=== PATIENT | male | born 1985 | race Caucasian/White ===

== ENCOUNTER 2019-01-11 20:13 | Emergency (ER) | payer OTHER, SELFPAY ==
[2019-01-11 20:21] VITALS: BP 155/88; PULSE 135; RESP 19; TEMP 37.1; O2SAT 96; BMI 48.1
--- NOTE | 2019-01-11 20:27 | DI.RAD.S_ITS ---
PROCEDURE: XR ANKLE LT MIN 3V INDICATIONS: twisted ankle TECHNIQUE: The views of the ankle were acquired. COMPARISON: None. FINDINGS: Bones: No fractures or dislocations. Ankle mortise is normally aligned. No suspicious bony lesions. Soft tissues: No tibiotalar joint effusion. Achilles tendon appears normal. IMPRESSION: No fracture. No osseous lesion. If there are persistent symptoms or clinical suspicion for pathology, then repeat radiographs or advanced imaging (CT, MRI or bone scan) should be considered for further evaluation. Dictated by: Keya Carlisle MD, PhD on 01/11/2019 at 21:14 Approved by: Keya Carlisle MD, PhD on 01/11/2019 at 21:15
--- NOTE | 2019-01-11 20:33 | ED.LOWEXIN ---
HPI - Extremity Injury (Lower) General Chief Complaint: Extremity Injury, Lower Stated Complaint: Left foot injury Time Seen by Provider: 01/11/19 22:20 Source: patient Mode of arrival: ambulatory Limitations: no limitations History of Present Illness HPI Narrative: Patient is a 33-year-old male who presents with left ankle pain. He was playing football on turf. He was running when he felt his toe get caught. He is able walk on it afterwards but he still has some pain laterally. He is noted to be quite tachycardic on arrival, he states that he has a 3 came ritual taking multiple allergy shots. His heart rate now after being in the emergency department for some time has decreased significantly. Related Data Allergies Allergy/AdvReac Type Severity Reaction Status Date / Time No Known Drug Allergies Allergy Verified 11/24/18 14:25 Review of Systems Review of Systems GENERAL: Denies chills,fever HEENT: Denies throat pain RESPIRATORY: Denies dyspnea, cough, wheezing CARDIOVASCULAR: Denies chest pain, palpitations GASTROINTESTINAL: Denies nausea, vomiting MUSCULOSKELETAL: See HPI SKIN: No rash, no laceration, no pruritus NEUROLOGIC: Denies weakness, dizziness, headache, numbness 8 point review of systems is negative except for those stated above and HPI PFSH Social History Smoking Status: Former smoker Social History Smoking Status: Former smoker Exam Initial Vital Signs Initial Vital Signs: Vital Signs Temperature 98.7 F 01/11/19 20:21 Pulse Rate 135 H 01/11/19 20:21 Respiratory Rate 19 01/11/19 20:21 Blood Pressure 155/88 H 01/11/19 20:21 Pulse Oximetry 96 01/11/19 20:21 GENERAL: Well-appearing, well-nourished and in no acute distress. CARDIOVASCULAR: peripheral pulses in tact, cap refill <2 sec RESPIRATORY: No respiratory distress, speaks in full sentences without difficulty EXTREMITIES: Normal range of motion, no clubbing or edema. Neurovascularly intact. -left lower extremity no gross bony deformities and minimal swelling no erythema on her vascularly intact NEUROLOGICAL: Cranial nerves II through XII grossly intact. Normal gait and speech. SKIN: Warm, dry, no petechiae, no rashes or lesions. Course Orders Ordered: ED Orders 01/11/19 20:27 XR ankle LT min 3V Stat EKG-12 Lead Stat Vital Signs - 8 hr 01/11/19 20:21 01/11/19 21:40 01/11/19 22:00 Temperature 98.7 F Pulse Rate 135 H 89 80 Respiratory Rate 19 16 19 Blood Pressure 155/88 H Blood Pressure [Right Arm] 126/80 129/79 Pulse Oximetry 96 99 98 MDM - Extremity Injury (Lower) Imaging Data left ankle: Radiologist's impression: PROCEDURE: XR ANKLE LT MIN 3V INDICATIONS: twisted ankle TECHNIQUE: The views of the ankle were acquired. COMPARISON: None. FINDINGS: Bones: No fractures or dislocations. Ankle mortise is normally aligned. No suspicious bony lesions. Soft tissues: No tibiotalar joint effusion. Achilles tendon appears normal. IMPRESSION: No fracture. No osseous lesion. If there are persistent symptoms or clinical suspicion for pathology, then repeat radiographs or advanced imaging (CT, MRI or bone scan) should be considered for further evaluation. Dictated by: Keya Carlisle MD, PhD on 01/11/2019 at 21:14 Approved by: Keya Carlisle MD, PhD on 01/11/2019 at 21:15 Discharge Plan Departure Patient Disposition: Home Clinical Impression: Sprain of ankle, left Qualifiers: Encounter type: initial encounter Involved ligament of ankle: unspecified ligament Qualified Code(s): S93.402A - Sprain of unspecified ligament of left ankle, initial encounter Discharge Date/Time: 01/11/19 22:42 Interventions: ED Discharge Assessment Last Done: 01/11/19 22:41 Instructions: Ankle Sprain Activity Restrictions/Additional Instructions: *You have been diagnosed with left ankle sprain *What to do: Increase activity as tolerated, rest, ice, elevate compression *Continue to take medications as directed Motrin 800 mg every 8 hours only if needed pain for up to 1 week *Follow up with your primary care provider in 2-3 days *Return to ER if you should have pain, numbness tingling weakness or any new, worsening or concerning symptoms
[2019-01-11 21:40] VITALS: BP 126/80; PULSE 89; RESP 16; O2SAT 99
[2019-01-11 22:00] VITALS: BP 129/79; PULSE 80; RESP 19; O2SAT 98
== END 2019-01-11 22:42 | disposition home or self-care (01) ==
PROVIDERS: Emergency Provider Emergency Medicine
DX: S93.402A Sprain of unspecified ligament of left ankle, initial encounter (principal); R00.0 Tachycardia, unspecified; Y93.61 Activity, american tackle football
CPT/HCPCS: 73610; 93005; 99282; 99284

== ENCOUNTER → 2020-05-14 08:28 | Outpatient (CLI) | payer OTHER, SELFPAY ==
[2020-05-14 09:55] LABS: Hemoglobin A1C% w Est Avg Glu 5.4 % (4.0-6.0)
[2020-05-14 09:57] LABS: Add Manual Diff / Slide Review NO; Basophils Absolute Auto 0 /uL (0-100); Basophils Percent Auto 0.1 % (0-2); Eosinophils Absolute Auto 100 /uL (0-450); Eosinophils Percent Auto 0.8 % (2-4); Hematocrit 44.9 % (41-53); Hemoglobin 15.5 g/dL (13.5-17.5); Lymphocytes Absolute Auto 1300 /uL (1100-4500); Lymphocytes Percent Auto 18.7 % (25-40); Mean Corpuscular HGB Conc 34.5 % (30-36); Mean Corpuscular Hemoglobin 30.4 PG (26-34); Mean Corpuscular Volume 88.1 fL (80-100); Monocytes Absolute Auto 500 /uL (0-900); Neutrophils Absolute Auto 5200 /uL (1500-7000); Neutrophils Percent Auto 73.4 % (50-75); Platelet Count 217 X10^3/uL (150-400); Red Cell Distribution Width 13.5 % (11.6-14.8); White Blood Cell Count 7.1 X10^3/uL (4.5-11.0)
[2020-05-14 10:16] LABS: Alanine Aminotransferase 51 IU/L (<50); Albumin 4.5 g/dL (3.5-5.0); Albumin Globulin Ratio 1.5 (1.0-2.8); Alkaline Phosphatase 69 U/L (38-126); Aspartate Aminotransferase 32 IU/L (17-59); BUN Creatinine Ratio 14.1 (6-22); Bilirubin Total 0.7 mg/dL (0.2-1.3); Blood Urea Nitrogen 14 mg/dL (9-20); Calcium 9.6 mg/dL (8.4-10.2); Carbon Dioxide 29 mmol/L (22-32); Chloride 104 mmol/L (98-107); Cholesterol 222 mg/dL (140-199); Estimated Glomerular Filt Rate > 60.0 mL/min (>60); Globulin 3.1 g/dL (1.7-4.1); Glucose 95 mg/dL (70-100); HDL Cholesterol 36 mg/dL (40-60); HEMOLYSIS < 15 (0-50); LDL Cholesterol Calculated 144 mg/dL (<100); Potassium 4.3 mmol/L (3.4-5.1); Sodium 139 mmol/L (137-145); Total Protein 7.6 g/dL (6.3-8.2); Triglycerides 211 mg/dL (35-150)
[2020-05-24 14:24] LABS: Urea Breath Test >18YRS NEGATIVE
== END ==
PROVIDERS: Referring Provider Family Medicine; Visit Provider Family Medicine
DX: E66.9 Obesity, unspecified (principal); K21.9 Gastro-esophageal reflux disease without esophagitis
CPT/HCPCS: 36415; 80053; 80061; 83013; 83036; 85025

== ENCOUNTER → 2021-08-08 08:12 | Outpatient (CLI) | payer OTHER, SELFPAY ==
[2021-08-08 09:34] LABS: Add Manual Diff / Slide Review NO; Basophils Absolute Auto 0 /uL (0-100); Basophils Percent Auto 0.2 % (0-2); Eosinophils Absolute Auto 100 /uL (0-450); Eosinophils Percent Auto 1.4 % (2-4); Hematocrit 42.3 % (41-53); Hemoglobin 14.3 g/dL (13.5-17.5); Lymphocytes Absolute Auto 1700 /uL (1100-4500); Lymphocytes Percent Auto 23.8 % (25-40); Mean Corpuscular HGB Conc 33.7 % (30-36); Mean Corpuscular Hemoglobin 30.1 PG (26-34); Mean Corpuscular Volume 89.2 fL (80-100); Monocytes Absolute Auto 500 /uL (0-900); Monocytes Percent Auto 7.1 % (3-14); Neutrophils Absolute Auto 4900 /uL (1500-7000); Neutrophils Percent Auto 67.5 % (50-75); Platelet Count 222 X10^3/uL (150-400); Red Blood Cell Count 4.75 X10^6/uL (4.5-5.9); Red Cell Distribution Width 13.5 % (11.6-14.8); White Blood Cell Count 7.3 X10^3/uL (4.5-11.0)
[2021-08-08 09:50] LABS: Alanine Aminotransferase 34 IU/L (<50); Albumin 4.2 g/dL (3.5-5.0); Albumin Globulin Ratio 1.3 (1.0-2.8); Alkaline Phosphatase 66 U/L (38-126); Aspartate Aminotransferase 25 IU/L (17-59); BUN Creatinine Ratio 15.8 (6-22); Bilirubin Total 0.6 mg/dL (0.2-1.3); Blood Urea Nitrogen 15 mg/dL (9-20); Carbon Dioxide 28 mmol/L (22-32); Chloride 107 mmol/L (98-107); Cholesterol 209 mg/dL (140-199); Estimated Glomerular Filt Rate > 60.0 mL/min (>60); Globulin 3.2 g/dL (1.7-4.1); Glucose 100 mg/dL (70-100); HDL Cholesterol 34 mg/dL (40-60); HEMOLYSIS < 15 (0-50); LDL Cholesterol Calculated 145 mg/dL (<100); Sodium 138 mmol/L (137-145); Total Protein 7.4 g/dL (6.3-8.2); Triglycerides 148 mg/dL (35-150)
[2021-08-08 10:08] LABS: Hemoglobin A1C% w Est Avg Glu 5.4 % (4.0-6.0)
== END ==
PROVIDERS: PCP Family Medicine; Referring Provider Family Medicine; Visit Provider Family Medicine
DX: E78.2 Mixed hyperlipidemia (principal); R73.9 Hyperglycemia, unspecified
CPT/HCPCS: 36415; 80053; 80061; 83036; 85025

== ENCOUNTER → 2021-09-07 16:46 | Outpatient (CLI) | payer OTHER, SELFPAY ==
--- NOTE | 2021-09-08 17:41 | DIET.CONS ---
Dietary Consultation Note Assessment: 36y M attending [address] visit for help with weight loss and HLD on 09/07/2021. 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 Pt spent much of high school on liquid diet and overexercising to cut weight for wrestling. Pt wrestled at 280# in high school. Pt reports drinking a lot of beer during early covid. He has a and two kids (9 and 11yo) who also wrestle. Ht: 6'3 Wt: 390# (420# not too long ago) UBW: 270# Usual Day: wakes 6am no breakfast unless weekend lunch 11am: panda express (broccoli beef, kungpao chicken, half diana mein and half steamed veggies) and ed Bite Teriyaki (ed with lots of rodriguez sprouts) drinks two sparkling ice drinks daily or water off 430 practice starts at 6pm wrestling Has been doing Hello [employer] the last few months but not last few weeks (lost 30# when starting) tries not to snack does [employer] and take out, though last few weeks more than usual Pts picky eater, likes chicken tenders with ketchup and other ultraprocessed foods. One of pts son is the same. This frustrates pt because he loves vegetables and variety of foods. Weekend: travelling for [employer] or sleeps in until 830am 1030am breakfast- biscuits and gravy c scrambled eggs and hashbrowns or lan and egg scramble or [employer]- corn beef hash dinner 5-6pm no plan or goes out to eat sometimes shephards pie Sunday night goes to friends house- [employer] food, reid light Pt not currently exercising because has trouble wearing mask at gym and has knee problems when walking on concrete. RD Impression: Pt will always be obese according to the BMI scale. Pts goal is to get under 350# and be able to maintain his weight without large fluctuations. Pts areas of improvement are in exercise to support his lean body mass and having more of a cohesive food plan on the weekends to avoid eating out, and to ensure high dietary fiber components in his weekend meals. Nutrition Dx: morbid obesity r/t physical inactivity and undesirable food choices aeb pt 390#, pt not currently exercising due to covid restrictions, pt lacks weekend food plan leading to high intake kcals, saturated fat, and low intake dietary fiber. Interventions: 1. Encouraged pt to get creative with how to workout. He is very well versed in exercise and relays to RD he just needs a push to get back into it. 2. Educated pt on the benefit of meal planning to reduce chance of caving into eating out. Provided pt with many copies of meal plan template and for him to start by focusing on Sunday breakfast and Sunday dinner. Pt will get son to make a fruit plate every Sunday am and veggie tray every Sunday evening as the family prefers raw fruits and veggies. Introduced pt to Whole30 meals, not to follow as plan, but to get idea for family friendly healthy meals to prepare on weekends. 3. Reiterated good choice of Hello Fresh type meal delivery for portion control and fresh ingredients. Pt enjoys rodriguez recipes. Reiterated benefit of dietary fiber in beans for good lipid regulation as well as satiety for weight loss. f/u in 8w to assess progress and problem solve barriers. Electronically Signed by: Keely Vega 09/08/21 17:41 Clinical Dietitian [place] [address] [place] [address]
== END ==
PROVIDERS: PCP Family Medicine; Referring Provider Family Medicine; Visit Provider Family Medicine
DX: E66.9 Obesity, unspecified (principal); E78.5 Hyperlipidemia, unspecified; Z68.42 Body mass index [BMI] 45.0-49.9, adult; Z71.3 Dietary counseling and surveillance
CPT/HCPCS: 97802

== ENCOUNTER → 2021-10-05 17:01 | Outpatient (CLI) | payer OTHER, SELFPAY ==
--- NOTE | 2021-10-06 16:19 | DIET.PN1 ---
Dietary Progress Note Visit conducted on 10/05/2021 36y M attending 4w f/u for help getting back on track with healthy eating and exercise. 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 Pt back on Hello Fresh for weekday meals, enjoying them. Pt looking at fiber content of foods, surprised that there is so little fiber in most packaged foods. Discussed sources of fiber in diet, mostly whole, plant based food, pt loves beans, will consume more. Pt had hectic few weeks with weekend [employer] so has not had any weekend family dinners but still planning to get kids involved in kitchen to make F/V platters for family. Pt happy mask mandate in gyms is up this , re-establishing his membership sunday and will start working out again. Pt feels weigh fluctuations related to hx of cyclic dieting, more recently being strict about diet then having the diet be so unsustainable he binges on junk food for weeks to months at a time feeling apathetic. Pt has hx high level physical activity and strength training, pt easily gains weight when not supporting LBM. Interventions: 1. Pt will continue to work on increasing protein and fiber in diet. Problem solving meals on the road, at [employer], and weekend eating. 2. Pt will start going to gym again Sunday to support LBM. 3. Pt will avoid strict dieting plans and instead focus on 80/20 rule, always looking for fiber and protein options. This will hopefully be protective factor for limiting cyclic dieting in favor of general healthy eating plan. F/u in 8w to support progress Electronically Signed by: Keely Vega 10/06/21 16:19 Clinical Dietitian [place] [address] [place] [address]
== END ==
PROVIDERS: PCP Family Medicine; Referring Provider Family Medicine; Visit Provider Family Medicine
DX: Z71.3 Dietary counseling and surveillance (principal)
CPT/HCPCS: 97803

== ENCOUNTER → 2021-12-07 16:58 | Outpatient (CLI) | payer OTHER, SELFPAY ==
--- NOTE | 2021-12-07 17:19 | DIET.CONS ---
Dietary Consultation Note 36y M attending RD f/u for healthy eating and weight loss. Pt starting at gym Sunday now that wrling season is over. 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 Pt knows when he starts to exercise he will feel better and be in better shape. Pt gained a few pounds last month but has since lost them. He attributes this to drinking too many beers. Pt expresses fact he is learning about himself is that he overcommits himself to others. Discussed how this can take away opportunities for self-care, healthy eating, sleep and exercise. Pt endorses 5-7h most night of sleep, discussed him trying to aim for 7h. Pt states he is having trouble hitting his fiber goal for the day, is eating blueberries, making black rodriguez soup, and eating lupini beans. Discussed supplemental fiber as needed whether pill, powder, or in fortified foods. Also to keep playing around with meal and snack options to find good fiber options. Provided link to [facility] with high fiber diet center. Ht: 6'3 Wt: 390# Monitoring/Evaluations: f/u in 3mo to discuss eating habits around back to school schedules Electronically Signed by: Keely Vega 12/07/21 17:19 Clinical Diet[address] [address]
== END ==
PROVIDERS: PCP Family Medicine; Referring Provider Family Medicine; Visit Provider Family Medicine
DX: E66.9 Obesity, unspecified (principal); Z68.42 Body mass index [BMI] 45.0-49.9, adult; Z71.3 Dietary counseling and surveillance
CPT/HCPCS: 97803

== ENCOUNTER → 2022-03-22 16:57 | Outpatient (CLI) | payer OTHER, SELFPAY ==
--- NOTE | 2022-03-23 14:46 | DIET.OUTPTC ---
Addendum entered by Keely Vega 03/23/22 14:55: Visit conducted on 03/22/22 Original Note: Dietary Outpatient Consultation Note Consultation Date: 03/23/2022 37[address] M attending RD f/u for help with weight management. Pt had lost 15# cumulative since our last visit but then contracted covid pna and was stuck at home for 10 days. This caused him to feel depressed and he started drinking beer and eating more processed foods, reduced physical activity leading to 15# weight gain. Pt states this went on for all of January then he snapped out of it when his brother came up and took him golfing. Since late January pt has been golfing 2-3x/w and is back on track with his eating. He has lost 10#. Pt feeling frustrated because of his slip up. Pt states he is quite sedentary at work. He is having success with his meal planning using [employer], is snacking on high fiber foods such as lupini beans, bringing leftovers to work daily. Pt considering doing Hard 75 cycle which led to 30# weight loss in past, consisting of exercising bid, no sugar, no etoh. Interventions: 1. Provided supportive counseling on pts slip in diet and exercise habits. Discussed circumstances leading to slip and benefit of finding new hobby in golf. Reinforced pts efforts to get back on track. 2. Discussed pts motivation to do Hard 75. Explained it is reasonable to do this twice per year to spur continued weight loss and weight maintenance while always coming back to his mindful, high fiber diet plan. 3. Used motivational techniques to problem solve with patient ways to decrease sedentary time at work. Pt will stand at counter for part of day, be less efficient when walking from one place to another if reasonable to do so, and find every excuse to walk up and down the stairway. Pt feels the accountability of meeting c RD is helpful to maintain habits, f/u in 3mo. Electronically Signed by: Keely Vega 03/23/22 14:46 Clinical Diet[address] [address]
== END ==
PROVIDERS: PCP Family Medicine; Referring Provider Family Medicine; Visit Provider Family Medicine
DX: Z71.3 Dietary counseling and surveillance (principal)
CPT/HCPCS: 97803

== ENCOUNTER → 2022-06-13 16:58 | Outpatient (CLI) | payer OTHER, SELFPAY ==
--- NOTE | 2022-06-13 17:36 | DIET.OUTPTC ---
Dietary Outpatient Consultation Note Consultation Date: 06/13/2022 37[address] M attending RD f/u for help with HLD. Pt going to schedule annual labs tomorrow to assess cholesterol levels and meet c PCP. Pt started Hard 75 but then got covid again so he stopped. Pt has continued to abstain from ETOH for the past 3w and plans to continue until at least Thanksgiving. 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 Pt still using Hello Fresh meals but now shares with entire family so is eating out more for lunch at work. Pt choosing Chipotle, [employer] or [employer]. Pt now eating dinner at 7:30-8pm rather than 6pm which he feels is too late, sometimes gets burst of energy and cannot sleep. Discussed having stock of high pro/high fiber snacks in home to take to work and use as after work snack- hb eggs, jerky, oatmeal, cheese sticks, protein drinks etc. Encouraged pt to eat large snack before leaving work or before going to practice so he splits dinner meal into two large snacks to avoid overconsumption so late in evening. Discussed stress eating as a form of dopamine mining- encouraged pt to look to other activities to release stress and only eat when physiologically hungry. Introduced pt to [employer] for short exercise options he can do at his sedentary job to break up the day. 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 Pt still golfing on weekends when weather is dry. F/u in 3mo to continue monitoring and to review labs. Electronically Signed by: Keely Vega 06/13/22 17:36 Clinical Dietitian [address] [address]
== END ==
PROVIDERS: PCP Family Medicine; Referring Provider Family Medicine; Visit Provider Family Medicine
DX: E78.5 Hyperlipidemia, unspecified (principal); Z71.3 Dietary counseling and surveillance
CPT/HCPCS: 97803

== ENCOUNTER → 2022-09-19 17:01 | Outpatient (CLI) | payer OTHER, SELFPAY ==
--- NOTE | 2022-09-19 17:10 | DIET.OUTPTC ---
Dietary Outpatient Consultation Note Consultation Date: 09/19/2022 37[address] M attending RD f/u for support around weight management and HLD. Pt with hx cutting weight for wrestling in high school. Was 320# and would cut to 250# by drinking liquid diet of slimfast, restricting water and running miles at a time. Pt states that after season was over he would quickly return to 320#. Pt not interested in weight loss, rather, healthy eating and weight maintenance. Pt focusing on fiber and protein intake. 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 -8# since last visit. Provided pt [employer] service pamphlet for body composition testing. Pt and friends may use this I[facility] service. Despite pts morbid obesity, he carries himself well and is proportional. Pt is showing kids wrestling moves several days per week, golfing regularly, and practicing good nutrition principles. Pt to get cholesterol retested by PCP in September and does have some knee and elbow pain which is not suprising related to high BMI and hx high athleticism. Pt requesting quarterly nutrition check ins to keep him on track. F/u in 3mo to continue monitoring. Electronically Signed by: Keely Vega 09/19/22 17:10 Clinical Dietitian [address] [address]
== END ==
PROVIDERS: PCP Family Medicine; Referring Provider Family Medicine; Visit Provider Family Medicine
DX: E78.5 Hyperlipidemia, unspecified (principal); Z71.3 Dietary counseling and surveillance
CPT/HCPCS: 97803

== ENCOUNTER → 2022-10-05 08:23 | Outpatient (CLI) | payer OTHER, SELFPAY ==
[2022-10-05 09:03] LABS: Add Manual Diff / Slide Review NO; Basophils Absolute Auto 0 /uL (0-100); Basophils Percent Auto 0.3 % (0-2); Eosinophils Absolute Auto 100 /uL (0-450); Hematocrit 42.9 % (41-53); Hemoglobin 14.4 g/dL (13.5-17.5); Lymphocytes Absolute Auto 1600 /uL (1100-4500); Lymphocytes Percent Auto 23.9 % (25-40); Mean Corpuscular HGB Conc 33.6 % (30-36); Mean Corpuscular Hemoglobin 30.2 PG (26-34); Monocytes Absolute Auto 600 /uL (0-900); Monocytes Percent Auto 8.6 % (3-14); Neutrophils Absolute Auto 4400 /uL (1500-7000); Neutrophils Percent Auto 65.2 % (50-75); Platelet Count 217 X10^3/uL (150-400); Red Blood Cell Count 4.77 X10^6/uL (4.5-5.9); White Blood Cell Count 6.8 X10^3/uL (4.5-11.0)
[2022-10-05 10:06] LABS: Alanine Aminotransferase 35 IU/L (<50); Albumin 4.2 g/dL (3.5-5.0); Albumin Globulin Ratio 1.5 (1.0-2.8); Alkaline Phosphatase 66 U/L (38-126); Aspartate Aminotransferase 28 IU/L (17-59); BUN Creatinine Ratio 15.1 (6-22); Bilirubin Total 0.8 mg/dL (0.2-1.3); Blood Urea Nitrogen 16 mg/dL (9-20); Calcium 9.1 mg/dL (8.4-10.2); Carbon Dioxide 26 mmol/L (22-32); Chloride 104 mmol/L (98-107); Cholesterol 212 mg/dL (140-199); Estimated Glomerular Filt Rate > 60 mL/min (>60); Globulin 2.8 g/dL (1.7-4.1); Glucose 96 mg/dL (70-100); HDL Cholesterol 41 mg/dL (40-60); HEMOLYSIS < 15 (0-50); LDL Cholesterol Calculated 144 mg/dL (<100); Potassium 4.4 mmol/L (3.4-5.1); Sodium 138 mmol/L (137-145); Triglycerides 133 mg/dL (35-150)
== END ==
PROVIDERS: PCP Family Medicine; Referring Provider Family Medicine; Visit Provider Family Medicine
DX: K21.9 Gastro-esophageal reflux disease without esophagitis (principal); K52.9 Noninfective gastroenteritis and colitis, unspecified; E78.2 Mixed hyperlipidemia; M54.9 Dorsalgia, unspecified
CPT/HCPCS: 36415; 80053; 80061; 85025

== ENCOUNTER → 2022-12-26 16:59 | Outpatient (CLI) | payer OTHER, SELFPAY ==
--- NOTE | 2022-12-26 17:33 | DIET.OUTPTC ---
Dietary Outpatient Consultation Note Consultation Date: 12/26/2022 37[address] M attending RD f/u for HLD. Pt had meeting with PCP last month. TGs normal, HDL improved, LDL still stubborn at 144. Pts weight is stable at a low weight for him, back down to weight in 2019. Overall pts labs look excellent with better lipid profile overall. Pt continues to focus on high protein/high fiber diet. Pts exercise has increased this month due to his summer golfing habit. He tends to walk the course rather than drive a golf cart to get more steps. Pt will continue to focus on current interventions for mcc maintenance. Electronically Signed by: Keely Vega 12/26/22 17:33 Clinical Dietitian [address] [address]
== END ==
PROVIDERS: PCP Family Medicine; Referring Provider Family Medicine; Visit Provider Family Medicine
DX: E78.5 Hyperlipidemia, unspecified (principal); Z71.3 Dietary counseling and surveillance
CPT/HCPCS: 97803

== ENCOUNTER 2023-05-07 13:40 | Emergency (ER) | payer OTHER, SELFPAY ==
[2023-05-07 13:59] VITALS: BP 142/92; PULSE 114; RESP 18; TEMP 36.6; O2SAT 98; BMI 52.6
--- NOTE | 2023-05-07 15:42 | ED_ITS ---
HPI - GI Bleed General Chief complaint: GI Bleed Stated complaint: abd issues/ blood in stool Time Seen by Provider: 05/07/23 15:19 Source: patient Mode of arrival: Ambulatory History of Present Illness HPI Narrative: 38-year-old male who is here for evaluation of several weeks of burping. He is also having some reflux issues. Did take some Pepto-Bismol. Did have bright red blood per rectum this morning. It was not painful for him to go the bathroom. He is not on blood thinners. No prior abdominal surgeries. No vomiting any blood. He does take omeprazole. No blood in his urine. He is having some vague abdominal discomfort. Related Data Home Medications Medication Instructions Recorded Confirmed omeprazole magnesium 20 mg 20 mg PO DAILY 05/05/20 08/18/21 tablet,delayed release (Prilosec OTC) Previous Rx's Medication Instructions Recorded sucralfate 100 mg/mL oral 10 ml PO QACHS #414 mL 05/07/23 suspension (Carafate) Allergies Allergy/AdvReac Type Severity Reaction Status Date / Time No Known Drug Allergies Allergy Verified 05/07/23 13:59 Review of Systems Constitutional Constitutional: Reports system reviewed and no additional complaints, except as documented Cardiovascular Cardiovascular: Reports system reviewed and no additional complaints, except as documented Respiratory Respiratory: Reports system reviewed and no additional complaints, except as documented Gastrointestinal Gastrointestinal: Reports system reviewed and no additional complaints, except as documented Genitourinary Genitourinary: Reports system reviewed and no additional complaints, except as documented Musculoskeletal Musculoskeletal: Reports system reviewed and no additional complaints, except as documented Hematologic/Lymphatic On Anticoagulants: No Patient History Medical History Hyperlipidemia Dorsalgia GERD (gastroesophageal reflux disease) Gastroenteritis Social History Smoking Status: Former smoker Smoking Status: Former smoker alcohol intake frequency: a few times a week Substance Use Type: does not use Exam Initial Vital Signs Initial Vital Signs: Vital Signs Temperature 97.9 F 05/07/23 13:59 Pulse Rate 114 H 05/07/23 13:59 Respiratory Rate 18 05/07/23 13:59 Blood Pressure 142/92 H 05/07/23 13:59 Pulse Oximetry 98 05/07/23 13:59 Oxygen Delivery Method Room Air 05/07/23 13:59 Const General: cooperative, comfortable and No ill appearing [facility] Head: normal to inspection and normocephalic Resp Effort & Inspection: normal respiratory effort Auscultation: clear to auscultation bilaterally Cardio Rate: regular rate Rhythm: regular rhythm GI Inspection: normal to inspection and non-distended Palpation: soft, No firm and No tender Skin General: no rashes or lesions noted Neuro General: patient alert, patient awake and moves all extremities Extrem General: capillary refill normal Course Orders Ordered: ED Orders 05/07/23 15:45 Basic Metabolic Panel Stat Complete Blood Count AUTO DIFF Stat Vital Signs Vital signs: Vital Signs - 8 hr 05/07/23 13:59 05/07/23 15:48 05/07/23 15:49 Temperature 97.9 F Pulse Rate 114 H 96 H Respiratory Rate 18 Blood Pressure 142/92 H 140/72 Pulse Oximetry 98 95 Oxygen Delivery Method Room Air 05/07/23 15:49 Temperature Pulse Rate 100 H Respiratory Rate Blood Pressure Pulse Oximetry 95 Oxygen Delivery Method Room Air MDM - GI Bleed Lab Data Attestation: I reviewed the patient's lab results. 05/07/23 15:45 05/07/23 15:45 Labs: Lab Results 05/07/23 Range/Units 15:45 WBC 9.4 (4.5-11.0) X10^3/uL RBC 4.94 (4.5-5.9) X10^6/uL Hgb 15.1 (13.5-17.5) g/dL Hct 44.0 (41-53) % MCV 89.0 (80-100) fL MCH 30.6 (26-34) PG MCHC 34.4 (30-36) % RDW 13.2 (11.6-14.8) % Plt Count 228 (150-400) X10^3/uL Neut % (Auto) 80.6 H (50-75) % Lymph % (Auto) 13.1 L (25-40) % Saline % (Auto) 5.3 (3-14) % Eos % (Auto) 0.5 L (2-4) % Baso % (Auto) 0.5 (0-2) % Neut # (Auto) 7600 H (9584-4197) /uL Lymph # (Auto) 1200 (4227-5096) /uL Saline # (Auto) 500 (0-900) /uL Eos # (Auto) 100 (0-450) /uL Baso # (Auto) 0 (0-100) /uL Sodium 139 (137-145) mmol/L Potassium 4.3 (3.4-5.1) mmol/L Chloride 104 (98-107) mmol/L Carbon Dioxide 24 (22-32) mmol/L BUN 19 (9-20) mg/dL Creatinine 1.02 (0.66-1.25) mg/dL Estimated GFR > 60 (>60) mL/min BUN/Creatinine Ratio 18.6 (6-22) Glucose 103 H (70-100) mg/dL Calcium 9.7 (8.4-10.2) mg/dL MDM Narrative Medical decision making narrative: Patient is well-appearing. Has a benign exam. Vital signs and labs are unremarkable. No fevers. He does sound like he is got a significant reflux history is he is currently on omeprazole and has been having quite a bit of reflux disease. No fevers. We will start him on Carafate. He should follow-up with general surgery. No indication for admission to the hospital today. He does require an upper endoscopy and also colonoscopy. He was given return precautions. He expressed understanding and agreement. Discharge Plan Departure Patient Disposition: Home Clinical Impression: GERD (gastroesophageal reflux disease), Bright red blood per rectum Instructions: DI for Gastroesophageal Reflux Disease (GERD) Activity Restrictions/Additional Instructions: I recommend that you contact your primary doctor and also the general surgeons of the number provided below to discuss a referral to have a colonoscopy and upper endoscopy. Use the Carafate like we discussed. You can continue to take your omeprazole. Return to the emergency department for new or worsening symptoms. Prescriptions: New sucralfate [Carafate] 100 mg/mL suspension 10 ml PO QACHS Qty: 414 2RF No Action omeprazole magnesium [Prilosec OTC] 20 mg tablet,delayed release (DR/EC) 20 mg PO DAILY Referrals: Mariano Landrum MD [Primary Care Provider] - Bonilla Blake MD [Physician] - Stand Alone Forms: Patient Portal/API
[2023-05-07 15:48] VITALS: PULSE 96; O2SAT 95
[2023-05-07 15:49] VITALS: BP 140/72; PULSE 100; O2SAT 95
[2023-05-07 16:20] LABS: Add Manual Diff / Slide Review NO; Basophils Absolute Auto 0 /uL (0-100); Basophils Percent Auto 0.5 % (0-2); Eosinophils Absolute Auto 100 /uL (0-450); Eosinophils Percent Auto 0.5 % (2-4); Hemoglobin 15.1 g/dL (13.5-17.5); Lymphocytes Absolute Auto 1200 /uL (1100-4500); Lymphocytes Percent Auto 13.1 % (25-40); Mean Corpuscular HGB Conc 34.4 % (30-36); Mean Corpuscular Hemoglobin 30.6 PG (26-34); Monocytes Absolute Auto 500 /uL (0-900); Monocytes Percent Auto 5.3 % (3-14); Neutrophils Absolute Auto 7600 /uL (1500-7000); Neutrophils Percent Auto 80.6 % (50-75); Platelet Count 228 X10^3/uL (150-400); Red Blood Cell Count 4.94 X10^6/uL (4.5-5.9); Red Cell Distribution Width 13.2 % (11.6-14.8); White Blood Cell Count 9.4 X10^3/uL (4.5-11.0)
[2023-05-07 16:22] LABS: BUN Creatinine Ratio 18.6 (6-22); Blood Urea Nitrogen 19 mg/dL (9-20); Calcium 9.7 mg/dL (8.4-10.2); Carbon Dioxide 24 mmol/L (22-32); Chloride 104 mmol/L (98-107); Estimated Glomerular Filt Rate > 60 mL/min (>60); Glucose 103 mg/dL (70-100); HEMOLYSIS 26 (0-50); Potassium 4.3 mmol/L (3.4-5.1); Sodium 139 mmol/L (137-145)
== END 2023-05-07 17:20 | disposition home or self-care (01) ==
PROVIDERS: Emergency Provider Emergency Medicine; PCP Family Medicine
DX: K21.9 Gastro-esophageal reflux disease without esophagitis (principal); K62.5 Hemorrhage of anus and rectum
CPT/HCPCS: 36415; 80048; 85025; 99283

== ENCOUNTER 2023-06-05 09:08 | Day surgery (SDC) | payer OTHER, SELFPAY ==
[2023-06-05 09:50] VITALS: BP 138/87; PULSE 78; RESP 16; TEMP 36.4; O2SAT 97; BMI 51.2
[2023-06-05] MEDS: LACTATED RINGERS 1,000 ML 42 ML IV (09:57)
--- NOTE | 2023-06-05 11:06 | PM.HP.1 ---
History of Present Illness History of Present Illness Date Patient Seen: 06/05/23 Chief complaint: SDC Narrative: 38-year-old man with recent rectal bleeding here for diagnostic esophagoduodenoscopy and colonoscopy. He describes upper abdominal pain and cramping with associated bright red blood per rectum. He was began on Carafate and omeprazole and subsequently his abdominal pain and bleeding have resolved. No previous endoscopy. No family history intestinal malignancy. [facility] Medical History Hyperlipidemia Dorsalgia GERD (gastroesophageal reflux disease) Gastroenteritis Social History household members: spouse Smoking Status: Former smoker Meds Home Medications and Allergies Home Medications Medication Instructions Recorded Confirmed Type omeprazole magnesium 20 mg 20 mg PO DAILY 05/05/20 06/05/23 History tablet,delayed release (Prilosec OTC) sucralfate 100 mg/mL oral 10 ml PO QACHS #414 mL 05/07/23 06/05/23 Rx suspension (Carafate) Allergies Allergy/AdvReac Type Severity Reaction Status Date / Time No Known Drug Allergies Allergy Verified 06/05/23 09:48 Exam Vital Signs (past 8 hours): - 06/05/23 09:50 Temperature 97.5 F L Pulse Rate 78 Respiratory Rate 16 Blood Pressure 138/87 Pulse Oximetry 97 Oxygen Delivery Method Room Air Oxygen Delivery Method Room Air Narrative Exam Narrative: General adult man alert oriented no acute distress Chest nonlabored respiration Extremities warm well perfused Assessment & Plan Assessment and plan (1) Rectal bleeding: Status: Acute Assessment & Plan narrative: Diagnostic esophagoduodenoscopy and colonoscopy Technical details were discussed. Risks, benefits, alternatives explained. Risks including but not limited to myocardial infarction, aspiration, bleeding, pain, missed lesion, incomplete examination, need for further radiographic studies, intense perforation, and need for major abdominal surgery were discussed. All questions were answered to their satisfaction, and they are in agreement with this plan.
[2023-06-05 11:42] VITALS: BP 140/95; PULSE 80; RESP 16; TEMP 36.7; O2SAT 95
[2023-06-05 11:47] VITALS: BP 135/99; PULSE 76; RESP 15; O2SAT 96
--- NOTE | 2023-06-05 11:48 | PM.OP.EC ---
Operative Date/Time/Diagnoses Date of procedure: 06/05/23 Time of procedure: 11:48 Pre-op diagnosis: Rectal bleeding Post-op diagnosis: other (Internal hemorrhoids) Procedure & Clinicians Study performed: Diagnostic Esophagoduodenoscopy and colonoscopy Same procedure as scheduled: Yes Indications: Rectal bleeding Surgeon: Bonilla Blake Procedure Notes Procedure in detail: The history and physical was performed/updated and the patient is ASA class is 3. The procedure was discussed in detail with the patient. Potential risks complications including infection, bleeding, missed diagnosis, perforation, need for surgery, and were explained. Their questions were answered and informed consent was obtained. Patient placed in left lateral decubitus position. Time out was performed. Procedural sedation was administered by Anesthesia. A bite block was placed. the scope was inserted into the mouth and advanced through the esophagus and into the stomach. The stomach was without masses, ulcers or gastritis. The pylorus was intubated and the duodenum was normal to the 2nd portion. The scope was withdrawn into the esophagus the Z line was seen at 40 cm from the incisions. There was no Larry's esophagitis, esophageal masses or strictures. Stomach was desufflated and scope removed. Examination began with a thorough inspection of the perianal area there was no evidence of fissures, fistulae, external hemorrhoids or cutaneous malignancy. The colonoscopy scope was then placed into the anal canal and was advanced to the cecum, which was identified by the ileocecal valve, the appendiceal orifice and the confluence of the taenia. The scope was then slowly withdrawn examining colon thoroughly in all directions, irrigating it of any residual stool. Findings -no masses polyps or inflammation. -grade 1 internal hemorrhoids on retroflexion no active bleeding The patient tolerated the procedure well. They will be discharged once criteria are met. The prep was of good/excellent quality. The withdrawl time was 6 minutes. Specimen(s): none sent Impression: Internal hemorrhoids Post-procedure Recommendations: High fiber diet Disposition: same day surgery
[2023-06-05 11:54] VITALS: BP 133/96; PULSE 80; RESP 12; O2SAT 94
[2023-06-05 11:57] VITALS: BP 128/78; PULSE 77; RESP 22; O2SAT 93
== END 2023-06-05 12:31 | disposition home or self-care (01) ==
PROVIDERS: PCP Family Medicine; Referring Provider Surgery; Visit Provider Surgery
PROC: 0DJ08ZZ Inspection of Upper Intestinal Tract, Via Natural or Artificial Opening Endoscopic (ICD-10-PCS; CPT 43235; principal; 2023-06-05 10:45)
PROC: 0DJD8ZZ Inspection of Lower Intestinal Tract, Via Natural or Artificial Opening Endoscopic (ICD-10-PCS; CPT 45378; 2023-06-05 10:45)
DX: K62.5 Hemorrhage of anus and rectum (principal); K64.0 First degree hemorrhoids
CPT/HCPCS: 45378; 43235; J2704

== ENCOUNTER → 2024-05-27 09:23 | Outpatient (CLI) | payer OTHER, SELFPAY | PROVIDERS: PCP Family Medicine; Visit Provider Physician Assistant | DX: N50.811 Right testicular pain (principal) | CPT/HCPCS: 87086 ==

== ENCOUNTER → 2024-05-29 06:39 | Outpatient (CLI) | payer OTHER, SELFPAY ==
--- NOTE | 2024-05-29 06:40 | DI.US.S_ITS ---
PROCEDURE: US SCROTUM INDICATIONS: right testicular pain TECHNIQUE: Real-time scanning was performed of the scrotum and testicles, with image documentation. Color and pulse Doppler interrogation was performed of both testicles. COMPARISON: None. FINDINGS: Right: Testicle is normal in size at 4.7 x 3.0 x 2.9 cm, and homogenous in echotexture. Epididymis body and tail appears enlarged, compared to the left. No hydrocele or varicoceles. Overlying scrotal skin is normal in thickness. Scrotal maye/calcification present. Left: Testicle is normal in size at 4.7 x 3.1 x 2.7 cm, and homogeneous in echotexture. Epididymis is normal in overall size and morphology. No hydrocele or varicoceles. Overlying scrotal skin is normal in thickness. Doppler: Color and pulse Doppler demonstrate normal and symmetric arterial flow in both testicles. IMPRESSION: Mild enlargement of the right epididymis body and tail, suggestive of early infection. Dictated by: Jared Lozano M.D. on 05/29/2024 at 8:25 Approved by: Jared Lozano M.D. on 05/29/2024 at 8:30
== END ==
PROVIDERS: PCP Family Medicine; Referring Provider Physician Assistant; Visit Provider Physician Assistant
DX: N50.811 Right testicular pain (principal); N50.89 Other specified disorders of the male genital organs
CPT/HCPCS: 76870

== ENCOUNTER → 2024-12-09 16:43 | Outpatient (CLI) | payer OTHER, SELFPAY ==
--- NOTE | 2024-12-09 16:45 | DI.RAD.S_ITS ---
PROCEDURE: XR FOOT LT MIN 3V INDICATIONS: pain plantar surface TECHNIQUE: 3 views of the foot were acquired. COMPARISON: None. FINDINGS: Bones: No fractures or dislocations. No suspicious bony lesions. Soft tissues: No tibiotalar joint effusion. Achilles tendon appears normal. IMPRESSION: No acute bony abnormality. Dictated by: Jamaal Mahmood M.D. on 12/09/2024 at 20:44 Approved by: Jamaal Mahmood M.D. on 12/09/2024 at 20:46
== END ==
PROVIDERS: PCP Family Medicine; Referring Provider Family Medicine; Visit Provider Family Medicine
DX: M79.673 Pain in unspecified foot (principal)
CPT/HCPCS: 73630

== ENCOUNTER 2025-07-14 21:16 | Emergency (ER) | payer OTHER, SELFPAY ==
[2025-07-14 21:42] VITALS: BP 137/91; PULSE 75; RESP 16; TEMP 36.7; O2SAT 97; BMI 48.7
--- NOTE | 2025-07-14 21:46 | DI.CT.S_ITS ---
PROCEDURE: CT HEAD/BRAIN WO CON INDICATIONS: New vertigo TECHNIQUE: Noncontrast 4.5 mm thick angled axial sections acquired from the foramen magnum to the vertex, with coronal and sagittal reformats. For radiation dose reduction, the following was used: automated exposure control, adjustment of mA and/or kV according to patient size. COMPARISON: None. FINDINGS: Image quality: Diagnostic. CSF spaces: Basal cisterns are patent. No extra-axial fluid collections. Ventricles are normal in size and shape. Brain: No midline shift. No intracranial mass effect or hemorrhage. Haynes- white matter interface is normal. Skull and face: Calvarium and visualized facial bones are intact, without suspicious lesions. Sinuses: Visualized sinuses and mastoids are clear. IMPRESSION: No acute intracranial pathology. Dictated by: Jean Marie Brooks M.D. on 07/14/2025 at 22:17 Approved by: Jean Marie Brooks M.D. on 07/14/2025 at 22:18
--- NOTE | 2025-07-14 21:47 | ED.DIZZY ---
HPI - Dizziness General Chief Complaint: Neuro Symptoms/Deficit Stated Complaint: Vertigo, N Time Seen by Provider: 07/14/25 21:27 Source: patient and family Mode of arrival: Ambulatory History of Present Illness HPI Narrative: 40-year-old male patient with a history of GERD and morbid obesity who complains of waxing and waning dizziness for 2-1/2 days. He says it is both visual and with movement. Feels like his computer screens moving or things are moving and he has had nausea but no vomiting. Denies lightheadedness. Currently has minimal symptoms. No previous symptoms like this before Related Data Home Medications ?Medication ?Instructions ?Recorded ?Confirmed omeprazole magnesium 20 mg 20 mg PO DAILY 05/05/20 01/13/25 tablet,delayed release (Prilosec OTC) Previous Rx's ?Medication ?Instructions ?Recorded diazepam 5 mg tablet 5 mg PO BID PRN dizziness or 07/14/25 vertigo #7 tabs meclizine 25 mg tablet 25 mg PO BID PRN dizziness #20 tabs 07/14/25 Allergies Allergy/AdvReac Type Severity Reaction Status Date / Time No Known Drug Allergies Allergy Verified 07/14/25 21:42 Review of Systems Review of Systems ROS Unobtainable: All systems reviewed & are unremarkable except as noted in HPI and below Neurologic Neurologic: Reports as per HPI Patient History Medical History (Updated 07/14/25 @ 23:19 by Otoniel Alvarado MD) Acute epididymitis Hyperlipidemia Dorsalgia GERD (gastroesophageal reflux disease) Gastroenteritis Social History (Updated 07/04/24 @ 14:45 by Analia Rust RN) marital status: number of children: 2 household members: spouse Smoking Status: Former smoker alcohol intake: current caffeine: Yes Type(s) of exercise: regular exercise frequency: 1-2 times per week duration: 60-90 minutes/day Smoking Status: Former smoker alcohol intake frequency: a few times a week Exam Narrative Exam Narrative: General: Alert and conversant. No distress. Appears well nourished and well hydrated. Craniofacial: No evidence of trauma. Nontender and no swelling. Eyes: PERRLA EOMI conjunctiva clear. No nystagmus HEENT: Tragus, pinnae nontender. Tympanic membranes normal appearance. Oropharynx clear with no swelling, exudate or asymmetry of the pharynx. Nares clear. No sinus tenderness Lungs: Nonlabored respiration. Neuro: Alert and oriented. Cranial nerves, motor, sensory and cerebellar all grossly intact. No focal deficit Skin: Warm and normal color. No rashes Psychological: Normal affect and interaction. No evidence of delusion or psychosis. Normal mood. Initial Vital Signs Initial Vital Signs: Vital Signs Temperature 98.1 F 07/14/25 21:42 Pulse Rate 75 07/14/25 21:42 Respiratory Rate 16 07/14/25 21:42 Blood Pressure 137/91 H 07/14/25 21:42 Pulse Oximetry 97 07/14/25 21:42 Oxygen Delivery Method Room Air 07/14/25 21:42 Course Orders Ordered: ED Orders 07/14/25 21:46 CT head/brain wo con Stat Discontinued Medications Diazepam (Diazepam 5 Mg Tablet) 5 mg PO NOW ONE Stop: 07/14/25 22:34 Last Admin: 07/14/25 22:47 Dose: 5 mg Meclizine HCl (Meclizine Hcl 12.5 Mg Tablet) 25 mg PO NOW ONE Stop: 07/14/25 21:47 Last Admin: 07/14/25 21:55 Dose: 25 mg Meclizine HCl (Meclizine Hcl 12.5 Mg Tablet) 25 mg PO NOW ONE Stop: 07/14/25 22:34 Last Admin: 07/14/25 22:47 Dose: 25 mg Vital Signs Vital signs: Vital Signs - 8 hr 07/14/25 21:42 Temperature 98.1 F Pulse Rate 75 Respiratory Rate 16 Blood Pressure 137/91 H Pulse Oximetry 97 Oxygen Delivery Method Room Air MDM - Dizziness Imaging Data CT scan - head: My Impression: Unremarkable. No acute intracranial abnormality or mass [facility] Narrative Medical decision making narrative: Minimal improvement with the 1st dose of meclizine. He had more improvement with a 2nd dose of meclizine +diazepam. This appears to be vertigo which is peripheral vertigo. No further workup necessary in the ER. Plan will be hydration, rest and monitor symptoms. Prescriptions for meclizine and diazepam. Follow up with primary care or ENT if not improving. Return to the ER if worse Discharge Plan Departure Patient Disposition: Home Clinical Impression: Vertigo Instructions: DI for Vertigo Activity Restrictions/Additional Instructions: Plan: Hydration, rest and supportive care. Prescription for meclizine and diazepam as needed for vertigo. Follow up with primary care and/or ENT if symptoms persist. Prescriptions: New meclizine 25 mg tablet 25 mg PO BID PRN (Reason: dizziness) Qty: 20 0RF Rx Instructions: May take 1-2 pills as needed for vertigo diazepam 5 mg tablet 5 mg PO BID PRN (Reason: dizziness or vertigo) Qty: 7 0RF Rx Instructions: For vertigo not responding to meclizine No Action omeprazole magnesium [Prilosec OTC] 20 mg tablet,delayed release (DR/EC) 20 mg PO DAILY Referrals: Mariano Landrum MD [Primary Care Provider, Family Practice] Micheal Mullen MD [Physician, Otolaryngology (ENT)] Referral Note: Follow up as needed for persistent vertigo Clinical Impression: Vertigo Stand Alone Forms: Patient Portal/API
[2025-07-14 21:49] VITALS: PULSE 70; O2SAT 96
[2025-07-14] MEDS: MECLIZINE HCL 12.5 MG TABLET 25 MG PO ×2 (21:55→22:47)
[2025-07-14 22:00] VITALS: PULSE 70; O2SAT 96
[2025-07-14 22:11] VITALS: BP 132/75; PULSE 72; O2SAT 98
[2025-07-14 22:30] VITALS: BP 136/81; PULSE 70; O2SAT 97
[2025-07-14 23:00] VITALS: BP 125/77; PULSE 61; O2SAT 97
== END 2025-07-14 23:32 | disposition home or self-care (01) ==
PROVIDERS: Emergency Provider Emergency Medicine; PCP Family Medicine
DX: R42 Dizziness and giddiness (principal); R11.0 Nausea
CPT/HCPCS: 70450; 99283; 99284